=== PATIENT | female | born 1945 | race Caucasian/White ===

== ENCOUNTER → 2020-08-04 | Emergency (ER) | payer MEDICARE, MEDICAID ==
[~2020-08-04] VITALS: Ht 167.6 cm; Wt 81.6 kg
[~2020-08-04] MED LIST: CEPHALEXIN 250 MG CAP PO ONE; CLON0.1T OR; IBU800T OR; LORA-655 OR; METO25TA36 OR; OME20GT OR; SIMV20TA90 OR; [UNRECOGNIZED DRUG - CODE] OR
[2020-08-04 09:23] VITALS: BP 155/86
== END | disposition home or self-care (01) ==
LOC: ER 07:26
DX: S61.511A Laceration without foreign body of right wrist, initial encounter (principal); I10 Essential (primary) hypertension; Z90.710 Acquired absence of both cervix and uterus; Z88.0 Allergy status to penicillin; Z88.6 Allergy status to analgesic agent; Z88.8 Allergy status to other drugs, medicaments and biological substances; W54.0XXA Bitten by dog, initial encounter; Y93.89 Activity, other specified; Y99.8 Other external cause status; Y92.89 Other specified places as the place of occurrence of the external cause

== ENCOUNTER 2021-10-14 09:23 | Inpatient (IN) | payer MEDICARE, MEDICAID ==
[~2021-10-14] VITALS: Ht 167.6 cm; Wt 90.5 kg
[~2021-10-14 09:23] MED LIST changes: -CEPHALEXIN 250 MG CAP PO ONE; +SIMV20TA2 OR; -SIMV20TA90 OR
[2021-10-14] MEDS ORDERED: SODIUM CHLORIDE 0.9% 1,000 ML IVB ONE (10:00)
[2021-10-14] MEDS ORDERED: SODIUM CHLORIDE 0.9% 1,000 ML IV ONE (10:00)
[2021-10-14 10:20] LABS: Basophils # (auto) 0 10 ^3/uL (0-0.2); Basophils % (auto) 0.4 % (0.0-2.0); Eosinophils # (auto) 0 10 ^3/uL (0-0.8); Eosinophils % (auto) 0.6 % (0.0-7.0); Hematocrit 33.1 % (36.0-46.0); Hemoglobin 10.7 g/dL (12.2-16.2); Lymphocytes # (auto) 1.1 10 ^3/uL (0.4-5.4); Lymphocytes % (auto) 15.4 % (10.0-50.0); Mean Corpuscular Hemoglobin 29.3 pg (28.0-32.0); Mean Corpuscular Hgb Conc. 32.3 g/dL (32.0-36.0); Mean Corpuscular Volume 90.6 fL (80.0-100.0); Monocytes # (auto) 0.6 10 ^3/uL (0-1.3); Monocytes % (auto) 7.9 % (0.0-12.0); Neutrophils # (auto) 5.5 10 ^3/uL (1.6-8.6); Neutrophils % (auto) 75.7 % (37.0-80.0); Nucleated Red Blood Cells % 0.1 %; Red Blood Cells 3.66 10^6/uL (4.0-5.20); White Blood Cell 7.3 10^3/uL (4.4-10.8)
[2021-10-14 10:38] LABS: INR 0.99 (0.9-1.15); Partial Thromboplastin Time 27.9 sec (23.6-33.0)
[2021-10-14 10:41] LABS: Calcium 9.4 mg/dL (8.5-10.1); Potassium 3.7 mmol/L (3.5-5.1)
[2021-10-14 10:47] LABS: Albumin 3.6 g/dL (3.4-5.0); Bilirubin, Total 2.5 mg/dL (0.2-1.0); Total Protein 6.6 g/dL (6.4-8.2)
[2021-10-14] MEDS ORDERED: NITROGLYCERIN 0.4 MG SL TAB SL PRN ×2 (14:45→17:00)
[2021-10-14] MEDS ORDERED: MORPHINE SULFATE INJECTION 2 MG/ML SYRG IV PRN ×3 (14:45→17:00)
[2021-10-14] MEDS ORDERED: DOCU100C10 PO (16:20)
[2021-10-14] MEDS ORDERED: SENN8.6T83 PO (16:20)
[2021-10-14] MEDS ORDERED: FUR20T PO (16:20)
[2021-10-14] MEDS ORDERED: TRAZ50TA2 PO (16:20)
[2021-10-14] MEDS ORDERED: CHOL1TAB22 PO (16:20)
[2021-10-14] MEDS ORDERED: ACET-6 PO (16:20)
[2021-10-14] MEDS ORDERED: POTA-264 PO (16:20)
[2021-10-14] MEDS ORDERED: OYST500T28 PO (16:20)
[2021-10-14] MEDS ORDERED: HYDR-4072 PO (16:20)
[2021-10-14] MEDS ORDERED: PANTOPRAZOLE 40 MG/10 ML VIAL INJ IV ONE (17:00)
[2021-10-14] MEDS ORDERED: ceFAZolin 1GM/50ML 50 ML IV ONE (17:00)
[2021-10-14] MEDS ORDERED: ALUM & MAG HYDROX-SIMETH LIQ(MAALOX) 30 ML PO PRN (17:00)
[2021-10-14] MEDS ORDERED: LORazepam 0.5 MG TAB PO PRN (17:00)
[2021-10-14] MEDS ORDERED: HYDROcodone-ACET 5/325MG TAB PO PRN (17:00)
[2021-10-14] MEDS ORDERED: ENOXAPARIN SOD 40 MG/0.4 ML SYRINGE SC ONE (17:00)
[2021-10-14] MEDS ORDERED: ACETAMINOPHEN 325 MG TAB PO PRN (17:00)
[2021-10-14] MEDS ORDERED: DOCUSATE SOD 100 MG CAP PO PRN (17:00)
[2021-10-14] MEDS ORDERED: CALCIUM W/VIT D (600MG/400IU) TAB PO ONE (17:00)
[2021-10-14] MEDS ORDERED: hydrALAZINE HCL 20 MG/ML VL IV PRN (17:00)
[2021-10-14 17:32] LABS: Cholesterol 195 mg/dL (< 200)
[2021-10-14 17:36] LABS: HDL Cholesterol 48 mg/dL (40-59); LDL Cholesterol 120 mg/dL (< 100); Triglycerides 151 mg/dL (< 150)
[2021-10-14] MEDS ORDERED: FUROSEMIDE 20 MG/2 ML VIAL IV SCH (18:00)
[2021-10-14] MEDS ORDERED: IPRATROPIUM BROM 0.5 MG/2.5ML INH SOL NEB SCH (18:00)
[2021-10-14] MEDS ORDERED: NIFEdipine ER 30 MG TAB PO ONE (19:15)
[2021-10-14] MEDS: ATORVASTATIN 20 MG TAB PO SCH (21:13)
[2021-10-14] MEDS: POTASSIUM CHL 20 Meq TABLET PO SCH (21:13)
[2021-10-14] MEDS: SODIUM CHLORIDE 0.9% 1,000 ML IV SCH (21:14)
[2021-10-14 21:44] VITALS: BP 134/62
[2021-10-15] MEDS: ceFAZolin 1GM/50ML 50 ML IV SCH ×3 (01:38→19:45)
[2021-10-15 02:13] LABS: Urine Bacteria NONE SEEN /hpf (None Seen); Urine Blood Negative /uL (Negative); Urine WBC 167 /hpf (0 - 5); Urine WBC Clumps PRESENT /hpf (None Seen)
[2021-10-15 02:26] LABS: Amphetamine Screen, Urine NEGATIVE (NEGATIVE); Barbiturate Scree,Urine NEGATIVE (NEGATIVE); Benzodiazephine Screen, Urine NEGATIVE (NEGATIVE); Cannabinoid Screen, Urine NEGATIVE (NEGATIVE); Cocaine Screen, Urine NEGATIVE (NEGATIVE); Opiate Scree,Urine NEGATIVE (NEGATIVE); Phencyclidine Screen, Urine NEGATIVE (NEGATIVE)
[2021-10-15 05:00] VITALS: BP 135/62
[2021-10-15 05:54] LABS: Basophils # (auto) 0 10 ^3/uL (0-0.2); Basophils % (auto) 0.5 % (0.0-2.0); Eosinophils # (auto) 0.1 10 ^3/uL (0-0.8); Hematocrit 31.1 % (36.0-46.0); Hemoglobin 10.4 g/dL (12.2-16.2); Lymphocytes # (auto) 1.2 10 ^3/uL (0.4-5.4); Lymphocytes % (auto) 17.9 % (10.0-50.0); Mean Corpuscular Hemoglobin 29.8 pg (28.0-32.0); Mean Corpuscular Hgb Conc. 33.4 g/dL (32.0-36.0); Mean Corpuscular Volume 89.2 fL (80.0-100.0); Monocytes # (auto) 0.5 10 ^3/uL (0-1.3); Monocytes % (auto) 8.4 % (0.0-12.0); Neutrophils # (auto) 4.7 10 ^3/uL (1.6-8.6); Neutrophils % (auto) 72.2 % (37.0-80.0); Red Blood Cells 3.49 10^6/uL (4.0-5.20); Red Cell Distribution Width 14.2 % (11.8-14.3); White Blood Cell 6.5 10^3/uL (4.4-10.8)
[2021-10-15 06:09] LABS: INR 0.99 (0.9-1.15); Partial Thromboplastin Time 27.7 sec (23.6-33.0)
[2021-10-15 06:27] LABS: Calcium 8.9 mg/dL (8.5-10.1); Magnesium 2.7 mg/dL (1.6-2.6); Potassium 3.5 mmol/L (3.5-5.1)
[2021-10-15 06:33] LABS: BUN/Creatinine Ratio 25.5; Bilirubin, Total 2.1 mg/dL (0.2-1.0); Phosphorus 2.9 mg/dL (2.5-4.90); Total Protein 6.3 g/dL (6.4-8.2); Uric Acid 5.6 mg/dL (2.6-6.0)
[2021-10-15] MEDS: CALCIUM W/VIT D (600MG/400IU) TAB PO SCH ×2 (08:15→19:39)
[2021-10-15 09:00] VITALS: BP 151/64
[2021-10-15] MEDS: SODIUM CHLORIDE 0.9% 1,000 ML IV SCH (09:29)
[2021-10-15] MEDS: PANTOPRAZOLE 40 MG/10 ML VIAL INJ IV SCH (09:29)
[2021-10-15] MEDS: POTASSIUM CHL 20 Meq TABLET PO SCH (09:30)
[2021-10-15] MEDS: CHOLECALCIFEROL (VITD3) 2,000 UNIT CAP/TAB PO SCH (09:31)
[2021-10-15] MEDS: ENOXAPARIN SOD 40 MG/0.4 ML SYRINGE SC SCH (09:31)
[2021-10-15] MEDS: NIFEdipine ER 30 MG TAB PO SCH (09:31)
[2021-10-15] MEDS: MORPHINE SULFATE INJECTION 2 MG/ML SYRG IV PRN (09:33)
[2021-10-15] MEDS: ONDANSETRON HCL 4 MG/2 ML VIAL IV PRN (09:34)
[2021-10-15 12:55] VITALS: BP 158/68
[2021-10-15 16:35] VITALS: BP_SYST 136
[2021-10-15] MEDS: ATORVASTATIN 20 MG TAB PO SCH (21:01)
[2021-10-15 22:00] VITALS: BP 138/66
[2021-10-16] MEDS: MORPHINE SULFATE INJECTION 2 MG/ML SYRG IV PRN ×2 (00:26→10:23)
[2021-10-16] MEDS: ceFAZolin 1GM/50ML 50 ML IV SCH ×2 (01:20→09:41)
[2021-10-16] MEDS: SODIUM CHLORIDE 0.9% 1,000 ML IV SCH ×2 (01:37→18:37)
[2021-10-16 05:00] VITALS: BP 124/84
[2021-10-16 07:01] LABS: Hematocrit 33.3 % (36.0-46.0); Hemoglobin 11.2 g/dL (12.2-16.2)
[2021-10-16 07:03] LABS: Potassium 3.9 mmol/L (3.5-5.1)
[2021-10-16 07:04] LABS: Magnesium 2.3 mg/dL (1.6-2.6)
[2021-10-16] MEDS: CALCIUM W/VIT D (600MG/400IU) TAB PO SCH ×2 (08:00→18:00)
[2021-10-16 08:55] VITALS: BP 138/73
[2021-10-16] MEDS: CHOLECALCIFEROL (VITD3) 2,000 UNIT CAP/TAB PO SCH (09:41)
[2021-10-16] MEDS: PANTOPRAZOLE 40 MG/10 ML VIAL INJ IV SCH (09:41)
[2021-10-16] MEDS: NIFEdipine ER 30 MG TAB PO SCH (09:41)
[2021-10-16] MEDS: ENOXAPARIN SOD 40 MG/0.4 ML SYRINGE SC SCH (09:42)
[2021-10-16] MEDS ORDERED: ceFAZolin 1GM/50ML 100 ML IV ONE (11:27)
[2021-10-16] MEDS ORDERED: BUPIVACAINE 0.25% INJ 50ML VIAL ONE ×2 (11:29→11:37)
[2021-10-16] MEDS ORDERED: LIDOCAINE 1% HCL (LOCAL ANESTH.) INJ 20ML MDV ONE (11:29)
[2021-10-16] MEDS ORDERED: BUPIVACAINE W/ EPINEPH 0.5% MPF 30ML VIAL IJ ONE (11:34)
[2021-10-16] MEDS ORDERED: TRANEXAMIC ACID 20 ML ONE (11:37)
[2021-10-16] MEDS ORDERED: SUCCINYLCHOLINE CHLORIDE 20 MG/ML 10ML VIAL IV ONE (12:00)
[2021-10-16] MEDS ORDERED: DexAMETHasone SOD PHOS 10MG/1ML VIAL INJ ONE (12:56)
[2021-10-16] MEDS ORDERED: diphenhdrAMINE HCL 50 MG/1 ML VL ONE (12:56)
[2021-10-16] MEDS ORDERED: KETOROLAC TROMETH 30 MG/ML 1ML VIAL ONE (13:00)
[2021-10-16] MEDS ORDERED: ONDANSETRON HCL 4 MG/2 ML VIAL ONE (13:07)
[2021-10-16] MEDS ORDERED: fentaNYL CITRATE 100 MCG/2 ML VL ONE (14:09)
[2021-10-16] MEDS ORDERED: GELATIN 1 SPONGE SIZE 100 TOP ONE (15:24)
[2021-10-16] MEDS ORDERED: THROMBIN (BOVINE) 5000 UNIT SOL VIAL ONE (15:24)
[2021-10-16] MEDS ORDERED: VANCOMYCIN HCL 1000 MG VL ONE (16:11)
[2021-10-16] MEDS: ATORVASTATIN 20 MG TAB PO SCH (21:29)
[2021-10-16] MEDS: VANCOMYCIN 1GM/250ML 250 ML IV SCH (21:29)
[2021-10-16 22:00] VITALS: BP 112/59
[2021-10-17] MEDS: ceFAZolin 1GM/50ML 50 ML IV SCH ×3 (00:23→17:00)
[2021-10-17 05:00] VITALS: BP 113/58
[2021-10-17] MEDS: MORPHINE SULFATE INJECTION 2 MG/ML SYRG IV PRN (05:10)
[2021-10-17 07:01] LABS: Basophils # (auto) 0 10 ^3/uL (0-0.2); Eosinophils # (auto) 0 10 ^3/uL (0-0.8); Hematocrit 25.5 % (36.0-46.0); Hemoglobin 8.5 g/dL (12.2-16.2); Lymphocytes # (auto) 0.9 10 ^3/uL (0.4-5.4); Mean Corpuscular Hemoglobin 30.4 pg (28.0-32.0); Mean Corpuscular Hgb Conc. 33.5 g/dL (32.0-36.0); Mean Corpuscular Volume 90.7 fL (80.0-100.0); Monocytes # (auto) 1.2 10 ^3/uL (0-1.3); Monocytes % (auto) 9.7 % (0.0-12.0); Neutrophils # (auto) 10.5 10 ^3/uL (1.6-8.6); Neutrophils % (auto) 83.3 % (37.0-80.0); Red Blood Cells 2.81 10^6/uL (4.0-5.20); Red Cell Distribution Width 14.4 % (11.8-14.3); White Blood Cell 12.6 10^3/uL (4.4-10.8)
[2021-10-17 07:36] LABS: Potassium 4.2 mmol/L (3.5-5.1)
[2021-10-17 07:47] LABS: BUN/Creatinine Ratio 35.2; Calcium 8.5 mg/dL (8.5-10.1)
[2021-10-17 09:00] VITALS: BP 148/60
[2021-10-17] MEDS: ONDANSETRON HCL 4 MG/2 ML VIAL IV PRN ×3 (09:12→18:29)
[2021-10-17] MEDS: HYDROmorphone HCL 2 MG/ML VL IV PRN ×3 (09:13→18:28)
[2021-10-17] MEDS: ENOXAPARIN SOD 40 MG/0.4 ML SYRINGE SC SCH (09:16)
[2021-10-17] MEDS: CHOLECALCIFEROL (VITD3) 2,000 UNIT CAP/TAB PO SCH (09:21)
[2021-10-17] MEDS: NIFEdipine ER 30 MG TAB PO SCH (09:21)
[2021-10-17] MEDS: CALCIUM W/VIT D (600MG/400IU) TAB PO SCH ×2 (09:21→18:10)
[2021-10-17] MEDS: PANTOPRAZOLE 40 MG/10 ML VIAL INJ IV SCH (09:22)
[2021-10-17] MEDS: VANCOMYCIN 1GM/250ML 250 ML IV SCH (09:23)
[2021-10-17 13:18] VITALS: BP 150/64
[2021-10-17 17:19] VITALS: BP 126/60
[2021-10-17] MEDS: ATORVASTATIN 20 MG TAB PO SCH (21:27)
[2021-10-17 22:00] VITALS: BP 126/56
[2021-10-18] MEDS: HYDROmorphone HCL 2 MG/ML VL IV PRN (00:06)
[2021-10-18] MEDS: ceFAZolin 1GM/50ML 50 ML IV SCH ×3 (00:14→08:49)
[2021-10-18 05:38] LABS: Basophils # (auto) 0 10 ^3/uL (0-0.2); Basophils % (auto) 0.3 % (0.0-2.0); Eosinophils # (auto) 0.1 10 ^3/uL (0-0.8); Eosinophils % (auto) 0.6 % (0.0-7.0); Hematocrit 24.1 % (36.0-46.0); Hemoglobin 8.2 g/dL (12.2-16.2); Lymphocytes # (auto) 1.2 10 ^3/uL (0.4-5.4); Lymphocytes % (auto) 13.7 % (10.0-50.0); Mean Corpuscular Hemoglobin 30.7 pg (28.0-32.0); Mean Corpuscular Hgb Conc. 33.9 g/dL (32.0-36.0); Mean Corpuscular Volume 90.6 fL (80.0-100.0); Monocytes # (auto) 0.9 10 ^3/uL (0-1.3); Monocytes % (auto) 10.3 % (0.0-12.0); Neutrophils # (auto) 6.8 10 ^3/uL (1.6-8.6); Neutrophils % (auto) 75.1 % (37.0-80.0); Red Blood Cells 2.67 10^6/uL (4.0-5.20); Red Cell Distribution Width 14.5 % (11.8-14.3); White Blood Cell 9.1 10^3/uL (4.4-10.8)
[2021-10-18] MEDS: PANTOPRAZOLE 40 MG/10 ML VIAL INJ IV SCH (08:50)
[2021-10-18] MEDS: CALCIUM W/VIT D (600MG/400IU) TAB PO SCH ×2 (08:50→18:30)
[2021-10-18] MEDS: CHOLECALCIFEROL (VITD3) 2,000 UNIT CAP/TAB PO SCH (08:52)
[2021-10-18] MEDS: NIFEdipine ER 30 MG TAB PO SCH (08:52)
[2021-10-18] MEDS: ENOXAPARIN SOD 40 MG/0.4 ML SYRINGE SC SCH (08:53)
[2021-10-18 09:00] VITALS: BP 132/60
[2021-10-18 12:30] LABS: Albumin 2.4 g/dL (3.4-5.0); Calcium 8.2 mg/dL (8.5-10.1); Potassium 4.2 mmol/L (3.5-5.1)
[2021-10-18 12:33] LABS: BUN/Creatinine Ratio 25.4
[2021-10-18 13:00] VITALS: BP_SYST 112; BP_SYST 135; BP_DIAS 57; BP_DIAS 75
[2021-10-18 17:26] VITALS: BP 139/72
[2021-10-18] MEDS: ATORVASTATIN 20 MG TAB PO SCH (21:27)
[2021-10-18 21:53] VITALS: BP 123/58
[2021-10-19] MEDS: ceFAZolin 1GM/50ML 50 ML IV SCH (01:00)
[2021-10-19 05:31] VITALS: BP 123/62
[2021-10-19 06:38] LABS: Basophils # (auto) 0 10 ^3/uL (0-0.2); Basophils % (auto) 0.5 % (0.0-2.0); Eosinophils # (auto) 0.1 10 ^3/uL (0-0.8); Hemoglobin 8.2 g/dL (12.2-16.2); Monocytes # (auto) 0.7 10 ^3/uL (0-1.3); White Blood Cell 6.9 10^3/uL (4.4-10.8)
[2021-10-19 06:41] LABS: Albumin 2.3 g/dL (3.4-5.0); Calcium 8.3 mg/dL (8.5-10.1); Eosinophils % (auto) 1.6 % (0.0-7.0); Hematocrit 24.5 % (36.0-46.0); Lymphocytes # (auto) 1.2 10 ^3/uL (0.4-5.4); Lymphocytes % (auto) 17.4 % (10.0-50.0); Mean Corpuscular Hemoglobin 30.2 pg (28.0-32.0); Mean Corpuscular Hgb Conc. 33.4 g/dL (32.0-36.0); Mean Corpuscular Volume 90.7 fL (80.0-100.0); Monocytes % (auto) 10.8 % (0.0-12.0); Neutrophils # (auto) 4.8 10 ^3/uL (1.6-8.6); Neutrophils % (auto) 69.7 % (37.0-80.0); Nucleated Red Blood Cells % 0.1 %; Potassium 3.9 mmol/L (3.5-5.1); Red Cell Distribution Width 14.5 % (11.8-14.3)
[2021-10-19 06:44] LABS: BUN/Creatinine Ratio 37.1; Bilirubin, Total 1.1 mg/dL (0.2-1.0); Total Protein 5.1 g/dL (6.4-8.2)
[2021-10-19 07:54] VITALS: BP 129/72
[2021-10-19 08:00] VITALS: BP 129/72
[2021-10-19] MEDS ORDERED: ceFAZolin 1GM/50ML 50 ML IV SCH (08:00)
[2021-10-19] MEDS: CHOLECALCIFEROL (VITD3) 2,000 UNIT CAP/TAB PO SCH (08:18)
[2021-10-19] MEDS: CALCIUM W/VIT D (600MG/400IU) TAB PO SCH (08:18)
[2021-10-19] MEDS: NIFEdipine ER 30 MG TAB PO SCH (08:19)
[2021-10-19] MEDS: ENOXAPARIN SOD 40 MG/0.4 ML SYRINGE SC SCH (08:19)
[2021-10-19] MEDS: PANTOPRAZOLE 40 MG/10 ML VIAL INJ IV SCH (08:19)
== END 2021-10-19 11:37 | disposition left against medical advice (07) | DRG 483 ==
LOC: ER 09:23 → OVERFLOW 14:37 → WEST WING 17:50
PROVIDERS: ADMIT Hospitalist; ATTEND Internal Medicine
PROC: 0PSD04Z Reposition Left Humeral Head with Internal Fixation Device, Open Approach (ICD-10-PCS; 2021-10-16)
PROC: 0PSG04Z Reposition Left Humeral Shaft with Internal Fixation Device, Open Approach (ICD-10-PCS; 2021-10-16)
PROC: 0RRK00Z Replacement of Left Shoulder Joint with Reverse Ball and Socket Synthetic Substitute, Open Approach (ICD-10-PCS; principal; 2021-10-16 12:00)
DX: S42.292A Other displaced fracture of upper end of left humerus, initial encounter for closed fracture (principal); R65.10 Systemic inflammatory response syndrome (SIRS) of non-infectious origin without acute organ dysfunction; D62 Acute posthemorrhagic anemia; I10 Essential (primary) hypertension; S42.92XA Fracture of left shoulder girdle, part unspecified, initial encounter for closed fracture; M81.0 Age-related osteoporosis without current pathological fracture; E87.6 Hypokalemia; E78.5 Hyperlipidemia, unspecified; I87.2 Venous insufficiency (chronic) (peripheral); M19.90 Unspecified osteoarthritis, unspecified site; F41.9 Anxiety disorder, unspecified; Z20.822 Contact with and (suspected) exposure to COVID-19; K21.9 Gastro-esophageal reflux disease without esophagitis; W18.30XA Fall on same level, unspecified, initial encounter; Y93.01 Activity, walking, marching and hiking; Y99.9 Unspecified external cause status; Z79.899 Other long term (current) drug therapy; Z90.710 Acquired absence of both cervix and uterus; Z88.0 Allergy status to penicillin; Z88.6 Allergy status to analgesic agent; Z88.5 Allergy status to narcotic agent
CPT/HCPCS: 36415; 71045; 73020; 73030; 80048; 80053; 80061; 80307; 81001; 82306; 82728; 83036; 83735; 83880; 84100; 84132; 84443; 84484; 84550; 85014; 85018; 85025; 85610; 85730; 86850; 86900; 86901; 87040; 87086; 87426; 93005; 93306; 93970; 97116; 97163; 97530; A4565; C9113; G0378; J0330; J0690; J1100; J1885; J2001; J2405; J3490